=== PATIENT | male | born 1975 | race Caucasian/White ===

== ENCOUNTER 2019-06-16 13:12 | Emergency (ER) | payer MEDICAID ==
[~2019-06-16] VITALS: Ht 182.9 cm; Wt 60.7 kg
[2019-06-16 13:30] VITALS: BP 113/72
[2019-06-16] MEDS ORDERED: NICO-687 TD (14:31)
== END 2019-06-16 14:37 | disposition home or self-care (01) ==
LOC: ER 13:12
DX: Z00.00 Encounter for general adult medical examination without abnormal findings (principal); F15.90 Other stimulant use, unspecified, uncomplicated
CPT/HCPCS: 99282